=== PATIENT | female | born 2000 | race African-American/Black ===

== ENCOUNTER 2020-09-27 13:28 | Emergency (ER) | payer SELFPAY ==
[~2020-09-27] VITALS: Ht 172.7 cm; Wt 118.0 kg
[2020-09-27] MEDS ORDERED: CEPH500C2 MT (14:46)
[2020-09-27 15:05] VITALS: BP 122/85
== END 2020-09-27 15:05 | disposition home or self-care (01) ==
LOC: ER 13:28
DX: L03.116 Cellulitis of left lower limb (principal)
CPT/HCPCS: 99281